=== PATIENT | male | born 1980 | race African-American/Black ===

== ENCOUNTER 2018-01-26 16:43 | Emergency (ER) | payer MEDICAID ==
[~2018-01-26] VITALS: Ht 177.8 cm; Wt 75.0 kg
[2018-01-26] MEDS ORDERED: MAGNESIUM/ALUMINUM HYDROXIDE/SIMETHICONE 30ML UDC PO STA (19:00)
[2018-01-26] MEDS ORDERED: KETOROLAC 30MG/ML VIAL IV STA (19:00)
[2018-01-26] MEDS ORDERED: ONDANSETRON HCL 4MG/2ML INJ IV STA (19:00)
[2018-01-26] MEDS ORDERED: SODIUM CHLORIDE 0.9% 1,000 ML IV ONE (19:00)
[2018-01-26] MEDS ORDERED: FAMOTIDINE 20MG/2ML VIAL IV STA (19:00)
[2018-01-26] MEDS ORDERED: MORPHINE SULFATE 4 MG/ML CPJ (NOT FOR IM USE) IV STA (19:00)
[2018-01-26 20:22] LABS: HEMATOCRIT. 43.8 % (42.0-52.0); HEMOGLOBIN. 14.9 g/dL (14.0-18.0); MEAN CORPUSCULAR HEMOGLOBIN 30.4 pg (28.0-32.0); MEAN CORPUSCULAR VOLUME 89.3 fL (80.0-94.0); MEAN PLATELET VOLUME 7.5 fl (7.4-10.4); PLATELET 219 x1000/uL (130-400); RED BLOOD CELL COUNT 4.91 mill/uL (4.7-6.1); RED CELL DISTRIBUTION WIDTH 14.1 % (11.6-14.6)
[2018-01-26 20:26] LABS: CHLORIDE 106 mEq/L (98-107)
[2018-01-26 20:27] LABS: INR 1.1; PROTHROMBIN TIME 10.8 sec (9.1-11.1)
[2018-01-26 20:33] LABS: ETHANOL BLOOD < 10 mg/dL
[2018-01-26 20:42] LABS: PLATELET ESTIMATE NORMAL
[2018-01-26 21:44] LABS: CLARITY URINE CLEAR (CLEAR); COLOR URINE YELLOW (YELLOW); KETONES URINE TRACE (NEGATIVE); LEUKOCYTE ESTERASE URINE NEGATIVE (NEGATIVE); NITRITE URINE NEGATIVE (NEGATIVE); OCCULT BLOOD URINE NEGATIVE (NEGATIVE); PH URINE 7.5 (4.5-8.0); PROTEIN URINE 1+ (NEGATIVE); SPECIFIC GRAVITY URINE 1.017 (1.005-1.030); UROBILINOGEN URINE 0.2 E.U./dL (0.2-1.0)
[2018-01-26 21:58] LABS: METHADONE URINE SCREEN NEGATIVE (NEGATIVE); OPIATES URINE SCREEN PRESUMTIVE POSITIVE (NEGATIVE); PHENCYCLIDINE URINE SCREEN NEGATIVE (NEGATIVE)
[2018-01-26 21:59] LABS: *AMPHETAMINES SCREEN URINE NEGATIVE (NEGATIVE); *BARBITURATES SCREEN URINE NEGATIVE (NEGATIVE); *BENZODIAZEPINES SCREEN URINE NEGATIVE (NEGATIVE); *COCAINE SCREEN URINE NEGATIVE (NEGATIVE); CANNABINOID URINE SCREEN PRESUMTIVE POSITIVE (NEGATIVE)
[2018-01-26] MEDS ORDERED: ONDANSETRON HCL 4MG/2ML INJ IV ONE (22:00)
[2018-01-26] MEDS ORDERED: METOCLOPRAMIDE HCL 10MG/2ML VIAL IV ONE (22:45)
[2018-01-26 23:15] VITALS: BP 139/89
== END 2018-01-26 23:21 | disposition home or self-care (01) ==
LOC: ER 16:43
DX: K29.70 Gastritis, unspecified, without bleeding (principal)
CPT/HCPCS: 36415; 80053; 80305; 81003; 83690; 84484; 85025; 85610; 96361; 96374; 96375; 96376; 99283; G0482; J1885; J2270; J2405; J2765; J3490; J7030